=== PATIENT | male | born 1955 | race Caucasian/White ===

== ENCOUNTER 2016-10-10 08:32 | Inpatient (IN) ==
[2016-10-10] MEDS ORDERED: *HR* HYDROcodone/Acet 5/325 mg TABLET PO ONE (09:13)
--- NOTE | 2016-10-10 09:14 | Emergency Department Note ---
Disposition Clinical Impression: Diverticulitis Disposition: Admitted As Inpatient Condition: Fair Referrals: NO,PCP [Primary Care Provider] - Forms: Work/School Release, ED Satisfaction Letter Time of Disposition: 09:56 (jess taiwo) Abdominal Pain HPI - General Chief Complaint: ED General Medical Stated Complaint: stomach pain, passing blood clots Time Seen by Provider: 10/10/16 08:45 Source: patient Mode of arrival: ambulatory Limitations: no limitations Nursing Notes Reviewed: Yes Vital Signs Reviewed: Yes - History of Present Illness HPI Narrative: Sudden onset of lower left quadrant abdominal pain Sean Culp had gas pains last evening which progressed so this morning when he thought he had taken bowel movement when he passed mucus and blood tinged mucus from the rectum patient states the pain is still left lower quadrant radiating down towards his testicle region but denies difficulty urinating patient denies any blurred vision loss is chest pain chest pressure palpitations pain is all left lower quadrant nothing makes it better nothing makes it worse Pt Subjective Complaint: abdominal pain Onset (ago): day(s) (1) Consistency: constant Location: LLQ Pain Severity: moderate Pain Scale: 2 Quality: stabbing Improves with: nothing Worsens with: movement Context: new medications (naprosyn) Associated symptoms: Reports: melena. Denies: nausea, vomiting, diarrhea, fever , chills, constipation, dysuria, hematemesis, hematochezia, hematuria, anorexia , syncope Treatments prior to arrival: NSAIDs (took a total of 2 pills) - Related Data Home Medications Medication Instructions Recorded Confirmed Naproxen Sodium [Aleve] 220 mg PO DAILY 10/10/16 10/10/16 Previous Rx's Medication Instructions Recorded Cyclobenzaprine [Flexeril] 10 mg PO TID #21 tablet 09/28/16 Oxycodone HCl/Acetaminophen 1 each PO Q6H #16 tablet 09/28/16 [Percocet 5-325 mg Tablet] PredniSONE 40 mg PO DAILY #10 tablet 09/28/16 Allergies Allergy/AdvReac Type Severity Reaction Status Date / Time No Known Allergies Allergy Verified 10/10/16 08:33 All systems ED: reviewed and negative except as stated. Constitutional: Denies: fever, chills, weakness Eyes: Denies: eye pain ENT ED: Denies: ear pain Cardiovascular: Denies: chest pain Respiratory: Denies: cough, dyspnea Gastrointestinal: Reports: abdominal pain, nausea, melena Genitourinary: Denies: urgency, dysuria Musculoskeletal: Denies: back pain, neck pain Integumentary: Denies: rash, abrasion Neurological: Denies: headache Psychiatric: Denies: anxiety, depression Endocrine: Denies: fatigue Hematological/Lymphatic: Denies: easy bleeding Allergic/Immunologic: Denies: facial swelling Abdominal Pain PMH - Past Medical History Medical history: Reports: no medical history, other Male Surgical History: Reports: appendectomy Psychiatric history: Reports: no psych history - Social History Smoking status: Current every day smoker Alcohol use: Reports: occasionally Drug use: Reports: none Physical Exam - General Limitations: no limitations General appearance: alert, in no apparent distress, anxious - Head Head exam: atraumatic, normocephalic, normal inspection - Eye Eye exam: Present: normal appearance, PERRL, EOMI - ENT ENT exam: normal exam, normal oropharynx, mucous membranes moist, TM's normal bilaterally, normal external ear exam - Neck Neck exam: Present: normal inspection, full ROM, trachea midline - Chest Chest inspection: Present: normal inspection, symmetric chest wall rise - Respiratory Respiratory exam: Present: normal lung sounds bilaterally - Cardiovascular Cardiovascular exam: Present: regular rate, normal rhythm, normal heart sounds - Abdominal Exam Abdominal exam: Present: soft, tenderness, guarding, hypoactive bowel sounds. Absent: mass, pulsatile mass Abdominal tenderness: Present: LLQ, suprapubic, mild - Extremities Exam Extremities exam: Present: normal inspection, full ROM, normal capillary refill. Absent: tenderness, joint swelling - Back Exam Back exam: Present: normal inspection, full ROM. Absent: muscle spasm - Neurological Exam Neurological exam: Present: alert, oriented X3, CN II-XII intact - Psychiatric Psychiatric exam: Present: normal affect, normal mood - Skin Skin exam: Present: warm, dry, intact, normal color Course Course Narrative: Patient was seen and examined laboratory data CT scan performed awaiting results of the test - Reevaluation(s) Reevaluation #1: Discussed findings with patient that his acute diverticulitis patient is agreeable with admission to service Dr. Quinones for pain management antibiosis Vital Signs Temperature 98 F 10/10/16 08:35 Pulse Rate 94 10/10/16 08:35 Respiratory Rate 18 10/10/16 08:35 Blood Pressure 145/96 10/10/16 08:35 O2 Sat by Pulse Oximetry 99 10/10/16 08:35 Temperature 98 F 10/10/16 08:38 Pulse Rate 94 10/10/16 08:38 Respiratory Rate 18 10/10/16 08:38 Blood Pressure 145/96 10/10/16 08:38 O2 Sat by Pulse Oximetry 99 10/10/16 08:38 Oxygen Delivery Oxygen Delivery Room Air Abdominal Pain - Differential Diagnosis Differential Diagnosis: Likely: abdominal pain non-specific, calculus of kidney , diverticulitis, diverticulosis, gastroenteritis, other (GI BLeed) - Medical Records Medical records reviewed: Yes I reviewed the patient's medical records. - Lab Data Lab results reviewed: Yes I reviewed the patient's lab results. - Radiology Data Radiology results reviewed: Yes I reviewed the patient's radiology results. ITS Impressions Abdomen/Pelvis CT 10/10/16 08:52 IMPRESSION: Abnormal inflammatory change involving and surrounding the sigmoid colon, suggesting acute sigmoid diverticulitis. No pericolonic abscess. D/ / Austyn Dwyer MD / Austyn Dwyer MD Interpreting Provider: Austyn Dwyer MD Critical Care Time Critical Care Time: No
[2016-10-10 09:15] LABS: Basophils % 0.2 %; Eosinophils # 0.1 K/mcL (0.0-0.6); Eosinophils % 0.4 %; Hematocrit 51.1 % (37.5-50.1); Hemoglobin 17.5 g/dL (12.9-16.9); Immature Granulocytes % 0.5 % (0-4); Lymphocytes # 1.9 K/mcL (0.6-4.6); Lymphocytes % 10.5 %; Mean Corpuscular HGB Conc 34.2 g/dL (31.6-35.5); Mean Corpuscular Hemoglobin 32.2 pg (28.0-33.3); Mean Corpuscular Volume 93.9 fL (83.0-100.0); Mean Platelet Volume 10.3 fL (9.4-12.4); Monocytes # 1.3 K/mcL (0.0-1.3); Monocytes % 7.4 %; Platelet Count 222 K/mcL (140-400); Red Blood Count 5.44 M/mcL (4.19-5.50); Red Cell Distribution Width 13.5 % (11.5-14.5)
[2016-10-10 09:20] LABS: INR 1.1; Prothrombin Time 11.7 Seconds (9.4-12.1)
[2016-10-10 09:22] LABS: Neutrophils # 14.5 K/mcL (1.6-8.9)
[2016-10-10 09:23] LABS: Activated Partial Thrombo Time 31.1 Seconds (26.0-36.0)
[2016-10-10 09:27] LABS: BUN/Creatinine Ratio 14 (6-26); Blood Urea Nitrogen 14 mg/dL (8-26); Calcium 9.3 mg/dL (8.6-10.8); Carbon Dioxide 26 mEq/L (19-29); Chloride 103 mEq/L (98-109); Glucose 163 mg/dL (70-99); Osmolality,Calculated 292 (280-300); Potassium 4.4 mEq/L (3.5-4.5); Sodium 139 mEq/L (136-145); eGFR For African Americans > 60 (> 60); eGFR For Non-African Americans > 60 (> 60)
[2016-10-10] MEDS ORDERED: Ondansetron 4 MG/2 ML VIAL IV STA (10:16)
[2016-10-10] MEDS ORDERED: MetroNIDAZOLE 500 MG/100 ML 500 MG/100 ML BAG IVPB ONE ×2 (10:16→11:07)
[2016-10-10] MEDS ORDERED: *HR* HYDROmorphone (PF) 1 MG/ML SYRINGE IVP ONE (10:16)
[2016-10-10] MEDS ORDERED: Ondansetron 4 MG/2 ML VIAL IVP PRN ×2 (11:07→15:49)
[2016-10-10] MEDS ORDERED: *HR* HYDROmorphone (PF) 1 MG/ML SYRINGE IVP PRN (11:07)
[2016-10-10] MEDS ORDERED: *HR* OxyCODONE/APAP 5/325 TABLET PO SCH (11:07)
[2016-10-10] MEDS ORDERED: Naloxone 0.4 MG/ML INJ IVP PRN (11:07)
[2016-10-10] MEDS: 0.9 % Sodium Chloride 1,000 ML IVC SCH ×2 (12:10→23:44)
[2016-10-10] MEDS: Nicotine 21 MG PATCH.TD24 TD SCH (12:38)
--- NOTE | 2016-10-10 15:44 | Internal Med History&Physical ---
Date of Encounter: 10/10/16 Time of Encounter: 15:15 Assessment and Plan (1) Diverticulitis Current visit: Yes Status: Acute He has been started on IV Flagyl and Cipro. Diet will be advanced as tolerated. Qualifiers: Diverticulitis site: large intestine Diverticulitis bleeding: with bleeding Diverticulitis complication: without perforation or abscess Qualified Code(s): K57.33 - Diverticulitis of large intestine without perforation or abscess with bleeding (2) Hyperglycemia Current visit: Yes Status: Acute We will check labs in a.m. (3) Polycythemia Current visit: Yes Status: Acute Recheck labs in a.m. Internal Medicine - H&P: HPI Chief complaint: Abdominal pain and hematochezia Admitted From: Home Plans for Post Hospital Care: Home History of present illness: Mr. Stoll is a 61 year old male who came to emergency room stating he developed abdominal discomfort approximate 5 PM the previous day with crampy pain. He passed bright red blood with mucus on a BM this morning. He became concerned so came to the emergency room. He was evaluated with CT showing probable sigmoid diverticulitis. He was admitted to [facility] floor for ongoing care needs. He denies nausea vomiting or diarrhea. He denies previous episodes of diverticulitis. Denies disorders of his liver gallbladder or exocrine pancreas. Past Med Surg Social Fam HX - Past Medical History Medical history: no medical history, other Psychiatric history: no psych history - Social History Smoking Status: Current every day smoker Packs per day: 2 Alcohol use: occasionally Drug use: none Internal Medicine - H&P: Meds Cyclobenzaprine [Flexeril] 10 mg PO TID #21 tablet 09/28/16 [Rx] Oxycodone HCl/Acetaminophen [Percocet 5-325 mg Tablet] 1 each PO Q6H #16 tablet 09/28/16 [Rx] PredniSONE 40 mg PO DAILY #10 tablet 09/28/16 [Rx] Naproxen Sodium [Aleve] 220 mg PO DAILY 10/10/16 [History] Allergies No Known Allergies Allergy (Verified 10/10/16 08:33) All Systems PM: A 10-system review of systems was performed and is negative for pertinent findings except as documented above in the HPI. Review of systems: Gen.: He states his weight has been stable past few months Cardiovascular: Denies AR hypertension heart failure angina DVT or pulmonary embolus Respiratory: He has smoked since age 15 up to 2 packs per day. Denies known diagnosis of COPD. GI: As per history of present illness : Denies hematuria dysuria or kidney stones Neurologic: He denies large distribution strokes or seizures. Endocrine: He has been told in the past he has hyperlipidemia but does not take medication for this. He denies diabetes or thyroid disease Hematology/oncology: Denies blood disorders cancers or anemia Psychiatric: Denies anxiety depression or other mental health issues [place] skeletal: He has DJD and has had worse back pain over the past 2 weeks. He denies gout or other bone joint or muscle disorders. - Constitutional Vitals: Temp Pulse Resp BP Pulse Ox 97.9 F 82 18 131/77 95 10/10/16 12:05 10/10/16 12:05 10/10/16 12:05 10/10/16 12:05 10/10/16 12:05 Exam: Gen.: He is well-developed well-nourished male who appears in mild discomfort at present time complaining of lower abdominal pain and back pain HEENT: Head is atraumatic and normocephalic. Eyes: EOMI. There is no scleral icterus. Mouth: Mucosa is moist. Neck: Supple and nontender. There is no thyromegaly or adenopathy noted. Heart: Regular without murmurs gallops or ectopics. Lungs: No wheezes or crackles are heard. Abdomen: Bowel sounds are present. There is mild tenderness in the left upper and lower abdominal area to palpation. No masses or guarding are noted. Extremities: There is no cyanosis edema or clubbing noted. Dorsalis pedis and posttibial pulses are 1-2 over 2 bilaterally. Neurologic: Mental status: He is talkative and a good historian. Cranial nerves : Smile is symmetric. Forehead wrinkles bilaterally. Tongue protrudes midline. EOMI. Motor: There is no pronator drift. Cerebellar: Finger to nose is intact bilaterally. Skin: Warm and dry Internal Med - H&P Results - Labs CBC & Chem 7: 10/10/16 09:08 10/10/16 09:08
[2016-10-10] MEDS ORDERED: *HR* OxyCODONE/APAP 5/325 TABLET PO PRN (17:32)
[2016-10-10] MEDS: MetroNIDAZOLE 500 MG/100 ML 500 MG/100 ML BAG IVPB SCH (22:15)
[2016-10-11] MEDS: MetroNIDAZOLE 500 MG/100 ML 500 MG/100 ML BAG IVPB SCH ×3 (05:11→20:46)
[2016-10-11 06:30] LABS: Basophils # 0.1 K/mcL (0.0-0.2); Basophils % 0.5 %; Eosinophils # 0.1 K/mcL (0.0-0.6); Eosinophils % 1.3 %; Hemoglobin 15.2 g/dL (12.9-16.9); Immature Granulocytes % 0.5 % (0-4); Lymphocytes # 2.3 K/mcL (0.6-4.6); Lymphocytes % 22.3 %; Mean Corpuscular HGB Conc 33.8 g/dL (31.6-35.5); Mean Corpuscular Hemoglobin 31.7 pg (28.0-33.3); Mean Corpuscular Volume 93.9 fL (83.0-100.0); Mean Platelet Volume 10.5 fL (9.4-12.4); Monocytes # 0.8 K/mcL (0.0-1.3); Monocytes % 7.6 %; Neutrophils # 6.9 K/mcL (1.6-8.9); Platelet Count 214 K/mcL (140-400); Red Blood Count 4.79 M/mcL (4.19-5.50); Red Cell Distribution Width 13.2 % (11.5-14.5); Segmented Neutrophils % 67.8 %
[2016-10-11 06:44] LABS: BUN/Creatinine Ratio 11 (6-26); Blood Urea Nitrogen 9 mg/dL (8-26); Calcium 8.5 mg/dL (8.6-10.8); Carbon Dioxide 24 mEq/L (19-29); Chloride 106 mEq/L (98-109); Glucose 202 mg/dL (70-99); Osmolality,Calculated 292 (280-300); Potassium 3.6 mEq/L (3.5-4.5); Sodium 139 mEq/L (136-145); eGFR For African Americans > 60 (> 60); eGFR For Non-African Americans > 60 (> 60)
[2016-10-11] MEDS: PredniSONE 20 MG TABLET PO SCH (09:42)
[2016-10-11] MEDS: Nicotine 21 MG PATCH.TD24 TD SCH (09:42)
[2016-10-11] MEDS: 0.9 % Sodium Chloride 1,000 ML IVC SCH ×2 (10:24→18:53)
--- NOTE | 2016-10-11 10:49 | Internal Med Progress Note ---
Date of Encounter: 10/11/16 Time of Encounter: 10:40 - Assessment and plan (1) Diverticulitis Current Visit: Yes Status: Acute Assessment and plan: October 11. Continue IV Flagyl and Cipro. We will advance diet to full liquids. Anticipate discharge home tomorrow if stable. Qualifiers: Diverticulitis site: large intestine Diverticulitis bleeding: with bleeding Diverticulitis complication: without perforation or abscess Qualified Code(s): K57.33 - Diverticulitis of large intestine without perforation or abscess with bleeding (2) Hyperglycemia Current Visit: Yes Status: Acute Assessment and plan: October 11. Fasting blood sugar was elevated 202. Check hemoglobin A1c. (3) Polycythemia Current Visit: Yes Status: Acute Assessment and plan: October 11. Resolved. - Subjective Interval history: October 11. He has no new complaints and feels better. He has had no more hematochezia. He is tolerating clear liquids well. - Constitutional Vitals: Temp Pulse Resp BP Pulse Ox 98.9 F 72 18 105/67 97 10/11/16 06:58 10/11/16 06:58 10/11/16 06:58 10/11/16 06:58 10/11/16 06:58 Exam: He is resting comfortably lying in bed. His affect is bright and cheerful. He does not have any evidence of pain. Reviewed his medications and lab results. Internal Medicine: Result - Labs CBC & Chem 7: 10/11/16 05:52 10/11/16 05:52 Labs: Short CBC 10/11/16 Range/Units 05:52 WBC 10.1 (4.3-11.1) K/mcL Hgb 15.2 D (12.9-16.9) g/dL Hct 45.0 (37.5-50.1) % Plt Count 214 (140-400) K/mcL Neutrophils # 6.9 (1.6-8.9) K/mcL BMP 10/11/16 05:52 Sodium 139 Potassium 3.6 Chloride 106 Carbon Dioxide 24 BUN 9 Creatinine 0.84 Glucose 202 H Calcium 8.5 L - ABG Interpretation ABG results: PT/INR, D-dimer PT 11.7 Seconds (9.4-12.1) 10/10/16 09:08 Consult Discharge Plan - Plan Referrals: NO,PCP [Primary Care Provider] - 1 week
[2016-10-11 18:29] LABS: Hemoglobin A1C 7.3 %
[2016-10-11] MEDS: *HR* Enoxaparin 40 MG/0.4 ML SYRINGE SQ SCH (18:50)
[2016-10-12] MEDS: MetroNIDAZOLE 500 MG/100 ML 500 MG/100 ML BAG IVPB SCH (05:02)
[2016-10-12] MEDS: 0.9 % Sodium Chloride 1,000 ML IVC SCH (05:02)
[2016-10-12] MEDS: *HR* Enoxaparin 40 MG/0.4 ML SYRINGE SQ SCH (05:08)
[2016-10-12] MEDS: Nicotine 21 MG PATCH.TD24 TD SCH (08:34)
[2016-10-12] MEDS: PredniSONE 20 MG TABLET PO SCH (08:35)
[2016-10-12 11:10] VITALS: BP 123/76
--- NOTE | 2016-10-12 11:39 | Discharge Summary ---
Date of Encounter: 10/12/16 Time of Encounter: 11:15 - Discharge Diagnosis (1) Diverticulitis Priority: Primary Status: Acute Qualifiers: Diverticulitis site: large intestine Diverticulitis bleeding: with bleeding Diverticulitis complication: without perforation or abscess Qualified Code(s): K57.33 - Diverticulitis of large intestine without perforation or abscess with bleeding (2) Polycythemia Priority: Secondary Status: Resolved (3) DM type 2 (diabetes mellitus, type 2) Priority: Secondary Status: Chronic Qualifiers: Diabetes mellitus complication status: without complication Diabetes mellitus correction insulin use: without oil heaterman use Qualified Code(s): E11.9 - Type 2 diabetes mellitus without complications - Discharge Medications Prescriptions: Ciprofloxacin [Cipro] 500 mg PO BID #6 tablet MetroNIDAZOLE [Flagyl] 500 mg PO Q8H #9 tablet Home Medications: Cyclobenzaprine [Flexeril] 10 mg PO TID #21 tablet 09/28/16 [Rx] Oxycodone HCl/Acetaminophen [Percocet 5-325 mg Tablet] 1 each PO Q6H #16 tablet 09/28/16 [Rx] Ciprofloxacin [Cipro] 500 mg PO BID #6 tablet 10/12/16 [Rx] MetroNIDAZOLE [Flagyl] 500 mg PO Q8H #9 tablet 10/12/16 [Rx] Naproxen Sodium [Aleve] 220 mg PO DAILY PRN #0 10/12/16 [Rx] Allergies/Adverse Reactions: Allergies No Known Allergies Allergy (Verified 10/10/16 08:33) Date of admission: 10/11/16 16:41 Primary care physician: PCP NO - Patient Status Disposition: Home, Self-Care Condition: Fair Overall status at discharge: patient is progressing back to baseline - Discharge Instructions Follow Up With: NO,PCP [Primary Care Provider] - 1 week - Diet and Activity Activity: resume usual activities as tolerated Diet: diabetic diet Hospital course: Mr. Stoll is a 61 year old male who came to emergency room stating he developed abdominal discomfort approximate 5 PM the previous day with crampy pain. He passed bright red blood with mucus on a BM this morning. He became concerned so came to the emergency room. He was evaluated with CT showing probable sigmoid diverticulitis. He was admitted to [facility] floor for ongoing care needs. Initial orders were written by the emergency room physician. I saw him on October 10 and performed the history and physical. He was started on IV Flagyl and Cipro. His leukocytosis resolved overnight as did the left shift of the differential. His abdominal pain essentially resolved by the day of discharge on October 12. Diet was reintroduced and tolerated well. He will continue with oral Flagyl and Cipro for 3 additional days after discharge. Hemoglobin A1c returned elevated at 7.3%. I told him this was in the range of the diagnosis of diabetes. I note he has recently been on prednisone 40 mg daily x 10 days from a prescription dated 09/28/2016. PCP can recheck hemoglobin A1c and discuss further diabetic interventions if needed. He will be discharged home today and follow with a PCP at [facility] within one week. Room air oximetry will be checked prior to discharge. I encouraged him to become a nonsmoker. - Time Spent with Patient Total time spent providing and/or coordinating discharge services: - Constitutional Vitals: Temp Pulse Resp BP Pulse Ox 98.4 F 77 16 123/76 96 10/12/16 11:09 10/12/16 11:09 10/12/16 11:09 10/12/16 11:10/12/16 11:09
[2016-10-13] MEDS ORDERED: *HR* Enoxaparin 40 MG/0.4 ML SYRINGE SQ SCH (06:00)
== END 2016-10-12 12:46 | disposition home or self-care (01) | DRG 244 ==
LOC: INPPIK 08:32 → EMEROOPIK 08:32 → INPPIK 10:49
PROVIDERS: ADMIT Internal Medicine; ATTEND Internal Medicine